=== PATIENT | female | born 1955 | race Caucasian/White ===

== ENCOUNTER 2018-11-14 08:17 | Day surgery (SDC) | payer OTHER ==
[2018-11-10 11:43] VITALS: BMI 34.7
[~2018-11-14 08:17] MED LIST: CYCLOPENTOLATE HCL 1% OPHTH SOLN 2 ML BOTTLE OS SCH; KETOROLAC TROMETHAMINE 0.5% EYE DROP 1 DROP DROPS OS SCH; OFLOXACIN 0.3% OPHTHALMIC SOLUTION 5 ML BOTTLE OS SCH; PHENYLEPHRINE 2.5% OPHTH SOLN 15 ML BOTTLE OS SCH; TROPICAMIDE 1% OPHTH SOLN 15 ML BOTTLE OS SCH
[2018-11-14] MEDS: CYCLOPENTOLATE HCL 1% OPHTH SOLN 2 ML BOTTLE ONE ×4 (08:50→09:10)
[2018-11-14] MEDS: KETOROLAC TROMETHAMINE 0.5% EYE DROP 1 DROP DROPS ONE ×4 (08:50→09:10)
[2018-11-14] MEDS: TROPICAMIDE 1% OPHTH SOLN 15 ML BOTTLE ONE ×4 (08:50→09:10)
[2018-11-14] MEDS: OFLOXACIN 0.3% OPHTHALMIC SOLUTION 5 ML BOTTLE ONE ×4 (08:55→09:10)
[2018-11-14] MEDS: PHENYLEPHRINE 2.5% OPHTH SOLN 15 ML BOTTLE ONE ×4 (08:55→09:10)
[2018-11-14] MEDS ORDERED: BETAXOLOL HCL 0.25% OPHTHALMIC 10 ML DROPSBTL ONE (10:40)
[2018-11-14] MEDS ORDERED: POVIDONE-IODINE 5% OPHTHALMIC PREP 30 ML SOLUTION ONE (10:40)
[2018-11-14] MEDS ORDERED: NEO/POLYMYX B SULF/DEXAMETH OPHTHALMIC 5ML BOTTLE ONE (10:40)
[2018-11-14] MEDS ORDERED: BACITRACIN/POLYMYXIN OPH OINT 3.5 GM TUBE ONE (10:40)
[2018-11-14] MEDS ORDERED: TETRACAINE 0.5% OPHTH SOLN 2 ML BOTTLE ONE (10:40)
[2018-11-14] MEDS ORDERED: ACETYLCHOLINE 1:100 INTRA-OCUL 20 MG/2 ML KIT ONE (10:40)
[2018-11-14] MEDS ORDERED: EPI-SHUGARCAINE (EPINEPHRINE 0.025% & LIDOCAINE-PF 0.75%) 4ML ONE (10:40)
[2018-11-14] MEDS ORDERED: MIDAZOLAM HCL 2 MG/2 ML SINGLE DOSE VIAL ONE (10:54)
[2018-11-14] MEDS ORDERED: ACETAMINOPHEN 325 MG TABLET (FP) PO PRN (11:34)
[2018-11-14] MEDS ORDERED: ACETAMINOPHEN 325 MG TABLET (FP) ONE (11:44)
[2018-11-14 12:05] VITALS: TEMP 98.2
[2018-11-14 12:39] VITALS: BP 123/70; PULSE 76
--- NOTE | 2018-11-14 14:58 | OP ---
DATE OF OPERATION: 11/14/2018 PREOPERATIVE DIAGNOSIS: Cataract, left eye. POSTOPERATIVE DIAGNOSIS: Cataract, left eye. PROCEDURES: Cataract extraction via phacoemulsification with insertion of posterior chamber lens implant, left eye. SURGEON: Billy Cortes MD DONOR SPECIALIST: Kathleen Peguero MD ANESTHESIA: Topical with sedation. ESTIMATED BLOOD LOSS: Less than 1 mL. COMPLICATIONS: None. SPECIMENS: None. PROCEDURE: The patient was identified in the holding area. After all risks, benefits and alternatives were explained to the patient, informed consent was obtained. The left eye was marked with a marking pen and the patient then entered the operating room on an eye stretcher. After a formal timeout was performed, topical tetracaine eye drops were instilled onto the left eye. The left eye was then prepped and draped in the usual sterile fashion. An eyelid speculum was placed beneath the eyelid of the left eye. A infratemporal paracentesis incision was created using a 15-degree blade. Topical preservative-free epinephrine and preservative-free lidocaine was then injected into the anterior chamber. Viscoelastic was then injected into the anterior chamber. A 2.4-mm keratome blade was then used to make infratemporal incision. A 360-degree continuous curvilinear capsulorhexis was then created using a bent cystitome and Utrata forceps. Hydrodissection was performed using balanced saline solution on a cannula. Phacoemulsification was introduced to dissemble and remove the nucleus in its entirety. Irrigation/aspiration was then used to remove any remaining cortical material from the eye and the capsular bag was reformed using viscoelastic. An Mal model SN60WF with a power of 21.0 diopters, serial number [id number], was inspected, and found to be defect-free, and injected into the capsular bag. Irrigation/aspiration was then used to remove any remaining viscoelastic from the eye. The anterior chamber was reformed using balanced saline solution. Intracameral injections of Miochol were then injected and the pupil came down and was round. All wounds were hydrated with balanced saline solution and noted to be watertight. There was a red reflex present, the anterior chamber was deep, the eye had an adequate pressure, and the lens was perfectly centered in the capsular bag. Topical antibiotic eye drops and ointment were then administered to the left eye. The eyelid speculum was removed from the left eye. Left eye was shielded. The patient tolerated the procedure well, and left the operating room in stable condition, to follow up in the Eye [facility] tomorrow morning at 10:00. BILLY CORTES M.D. SUNDEEP/[id number]
== END 2018-11-14 12:25 | disposition home or self-care (01) ==
LOC: FASU 08:17
PROVIDERS: ATTEND Ophthalmology
PROC: 08RK3JZ Replacement of Left Lens with Synthetic Substitute, Percutaneous Approach (ICD-10-PCS; principal; 2018-11-14 11:09)
DX: H26.9 Unspecified cataract (principal)

== ENCOUNTER → 2019-01-02 | Day surgery (SDC) | payer OTHER ==
[2018-12-29 09:53] VITALS: BMI 34.7
[~2019-01-02] MED LIST changes: +ACETAMINOPHEN 325 MG TABLET (FP) ONE; +ACETAMINOPHEN 325 MG TABLET (FP) PO PRN; +ACETYLCHOLINE 1:100 INTRA-OCUL 20 MG/2 ML KIT ONE; +BACITRACIN/POLYMYXIN OPH OINT 3.5 GM TUBE ONE; +BETAXOLOL HCL 0.25% OPHTHALMIC 10 ML DROPSBTL ONE; +CYCLOPENTOLATE HCL 1% OPHTH SOLN 2 ML BOTTLE ONE; -CYCLOPENTOLATE HCL 1% OPHTH SOLN 2 ML BOTTLE OS SCH; +EPI-SHUGARCAINE (EPINEPHRINE 0.025% & LIDOCAINE-PF 0.75%) 4ML ONE; +KETOROLAC TROMETHAMINE 0.5% EYE DROP 1 DROP DROPS ONE; -KETOROLAC TROMETHAMINE 0.5% EYE DROP 1 DROP DROPS OS SCH; +LACTATED RINGERS SOLUTION 1,000 ML IV SCH; +NEO/POLYMYX B SULF/DEXAMETH OPHTHALMIC 5ML BOTTLE ONE; +OFLOXACIN 0.3% OPHTHALMIC SOLUTION 5 ML BOTTLE ONE; -OFLOXACIN 0.3% OPHTHALMIC SOLUTION 5 ML BOTTLE OS SCH; +ONDANSETRON 4 MG/2 ML VIAL IVPUSH PRN; +PHENYLEPHRINE 2.5% OPHTH SOLN 15 ML BOTTLE ONE; -PHENYLEPHRINE 2.5% OPHTH SOLN 15 ML BOTTLE OS SCH; +POVIDONE-IODINE 5% OPHTHALMIC PREP 30 ML SOLUTION ONE; +TETRACAINE 0.5% OPHTH SOLN 2 ML BOTTLE ONE; +TROPICAMIDE 1% OPHTH SOLN 15 ML BOTTLE ONE; -TROPICAMIDE 1% OPHTH SOLN 15 ML BOTTLE OS SCH
[2019-01-02] MEDS: KETOROLAC TROMETHAMINE 0.5% EYE DROP 1 DROP DROPS OD SCH ×6 (08:00→08:25)
[2019-01-02] MEDS: TROPICAMIDE 1% OPHTH SOLN 15 ML BOTTLE OD SCH ×6 (08:00→08:25)
[2019-01-02] MEDS: CYCLOPENTOLATE HCL 1% OPHTH SOLN 2 ML BOTTLE OD SCH ×6 (08:00→08:25)
[2019-01-02] MEDS: PHENYLEPHRINE 2.5% OPHTH SOLN 15 ML BOTTLE OD SCH ×6 (08:00→08:25)
[2019-01-02] MEDS: OFLOXACIN 0.3% OPHTHALMIC SOLUTION 5 ML BOTTLE OD SCH ×6 (08:00→08:25)
[2019-01-02 13:51] VITALS: TEMP 97.9
[2019-01-02 13:53] VITALS: BP 133/91; PULSE 76
--- NOTE | 2019-01-02 20:15 | OP ---
DATE OF OPERATION: 01/02/2019 AGE: [age] years old. SEX: Female. PREOPERATIVE DIAGNOSIS: Cataract, right eye. POSTOPERATIVE DIAGNOSIS: Cataract, right eye. PROCEDURE: Cataract extraction via phacoemulsification, insertion of posterior chamber lens implant, right eye. SURGEON: Billy Shi MD CHIEF OPERATOR HYDROFORMER: Kathleen Peguero MD ANESTHESIA: Regional with sedation. ESTIMATED BLOOD LOSS: Less than 1 mL. COMPLICATIONS: None. SPECIMENS: None. PROCEDURE: The patient was identified in the holding area. After all risks, benefits and alternatives were explained to the patient, informed consent was obtained. The right eye was marked with a marking pen. The patient then entered the operating room on an eye stretcher. After formal timeout was performed, topical tetracaine eyedrops were instilled onto the right eye. The right eye was then prepped and draped in the usual sterile fashion. An eyelid speculum was placed beneath the eyelids of the right eye. A supratemporal paracentesis incision was created using a 15-degree blade. Topical preservative-free epinephrine and preservative-free lidocaine was then injected into the anterior chamber. A 2.4-mm keratome blade was then used to make an infratemporal incision. Viscoelastic was then injected into the anterior chamber. A 360-degree continuous curvilinear capsulorrhexis was then created using bent cystotome and Utrata forceps. Hydrodissection was performed using balanced saline solution on a cannula. Phacoemulsification was introduced to disassemble and remove the nucleus in its entirety. Irrigation/aspiration was then used to remove any remaining cortical material from the eye. The capsular bag was re-formed using viscoelastic. An Mal model SN60WF with a power of 21.0 diopters, serial number [id number] was inspected and found to be defect free and injected into the capsular bag. Irrigation/aspiration was then used to remove any remaining viscoelastic from the eye. The anterior chamber was reformed using balanced saline solution. Intracameral injection of Miochol was then administered and the pupil came down and was round. All wounds were hydrated with balanced saline solution and noted to be watertight; however, the main wound started leaking, so interrupted 10-0 nylon sutures were placed to close the wound. There was no leak afterwards. The knots were buried. There was a red reflex present. The anterior chamber was deep. The lens was perfectly centered in the capsular bag and the eye had adequate pressure. Topical antibiotic eyedrops and ointment was then administered to the right eye. The eyelid speculum was removed from the right eye. The right eye was shielded. The patient tolerated the procedure well and left the operating room in stable condition, to follow up in the eye clinic tomorrow morning at 10. Mercedes SMITH/[id number]
== END | disposition home or self-care (01) ==
LOC: FASU 07:37
PROVIDERS: ATTEND Ophthalmology
PROC: 08RJ3JZ Replacement of Right Lens with Synthetic Substitute, Percutaneous Approach (ICD-10-PCS; principal; 2019-01-02 09:15)
DX: H26.9 Unspecified cataract (principal)